=== PATIENT | female | born 1970 ===

== ENCOUNTER 2017-08-27 17:25 | Emergency (ER) | payer OTHER ==
[~2017-08-27] VITALS: Ht 162.6 cm; Wt 102.1 kg
[~2017-08-27 17:25] MED LIST: PRENATAL CAPLE1 EACH PO
[2017-08-27] MEDS ORDERED: CYTOTEC200 MCG PO (17:53)
== END 2017-08-27 19:13 | disposition home or self-care (01) ==
LOC: ED 17:25
DX: O03.9 Complete or unspecified spontaneous abortion without complication (principal); Z79.899 Other long term (current) drug therapy
CPT/HCPCS: 76801; 76817; 80048; 84702; 84703; 85025; 86900; 86901; 99284